=== PATIENT | female | born 1985 | race Caucasian/White ===

== ENCOUNTER 2017-01-27 13:31 | Emergency (ER) | payer SELFPAY ==
[~2017-01-27 13:31] MED LIST: DOXY100T18 PO
[2017-01-27 13:33] VITALS: BP 143/74; PULSE 78; RESP 15; TEMP 98.2; O2SAT 98
--- NOTE | 2017-01-27 15:16 | PD ---
HPI . sore throat and head congestion x 1 week Chief Complaint: Cold / Flu Symptoms Time Seen by Provider: 15:16 Travel History International Travel<30 days: No Contact w/Intl Traveler<30days: No Traveled to known affect area: No History of Present Illness HPI 31-year-old female here with complaints of head congestion, sore throat and intermittent nausea for 1 week. Patient says her pain in her head pressure was so intense that she developed nausea and has had it since. Her head pressure started to improve yesterday, but is still present. She is also complaining of sore throat. She said she was previously diagnosed with sinusitis in the past and this seems similar. She denies any fever or chills. She denies any coughing. PFSH Past Medical History Depression: Yes Diabetes: No Diminished Hearing: No Insomnia: Yes Reproductive: Yes (H/O TRICH AND BACTERIAL VAGINOSIS IN THE PAST) Immunizations Current: Yes Migraines: Yes ?: Not : 5 Para: 3 Miscarriage: 2 Tubal Ligation: Yes Social History Alcohol Use: No Tobacco Use: No Substance Use: No Allergies-Medications (Allergen,Severity, Reaction): Coded Allergies: Clindamycin (Verified Allergy, Severe, RASH, 01/27/17) Vancomycin (Verified Allergy, Severe, rash/itching, 01/27/17) *MDRO Multi-Drug Resistant Organism (Verified Adverse Reaction, Unknown, ) MRSA (knee wound) - 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, (thigh wound) - 10/2015 MRSA PCR Screen POSITIVE - 11/05/2015 Reported Meds & Prescriptions Reported Meds & Active Scripts Active Review of Systems General / Constitutional: No: Fever Eyes: No: Visual changes HENT: Positive: Sore Throat, Congestion, No: Headaches Cardiovascular: No: Chest Pain or Discomfort Respiratory: No: Shortness of Breath Gastrointestinal: Positive: Nausea, No: Abdominal Pain Genitourinary: No: Dysuria Musculoskeletal: No: Pain Skin: No Rash Neurologic: No: Weakness Psychiatric: No: Depression Endocrine: No: Polydipsia Hematologic/Lymphatic: No: Easy Bruising Physical Exam Narrative GENERAL: AAO x 3, no acute distress, Well-nourished, well-developed patient. SKIN: Warm and dry. No visible rashes or bruising. HEAD: Normocephalic and atraumatic. EYES: No scleral icterus. No injection or drainage. EOM intact, PERRLA ENT: No nasal drainage noted. Mucous membranes pink. Airway patent. Maxillary sinus tenderness. Posterior pharynx no erythema, exudates or edema. NECK: Supple, trachea midline. No JVD. No lymphadenopathy. CARDIOVASCULAR: Regular rate and rhythm without murmurs, gallops, or rubs. RESPIRATORY: Breath sounds equal bilaterally. No accessory muscle use. No rhonchi or rales. GASTROINTESTINAL: Abdomen soft, non-tender, nondistended. EXTREMITIES: No cyanosis or edema. BACK: Nontender without obvious deformity. No CVA tenderness. PSYCH: AAO x 3, normal affect. Data Data Last Documented VS Vital Signs Date Time Temp Pulse Resp B/P Pulse Ox O2 Delivery O2 Flow Rate FiO2 01/27/17 13:33 98.2 78 15 143/74 98 MDM Medical Decision Making Medical Screen Exam Complete: Yes Emergency Medical Condition: Yes Medical Record Reviewed: Yes Differential Diagnosis Sinusitis, allergic rhinitis, bronchitis Narrative Course 31-year-old female here with complaints of head congestion, sore throat and intermittent nausea for 1 week. Patient says her pain in her head pressure was so intense that she developed nausea and has had it since. Her head pressure started to improve yesterday, but is still present. She is also complaining of sore throat. She said she was previously diagnosed with sinusitis in the past and this seems similar. She denies any fever or chills. She denies any coughing. Patient seen and examined. She appears to have sinusitis. She has maxillary sinus tenderness. We have discussed antibiotic options and she would like a Z-Rm as it is slightly cheaper than some of the alternative medications. Patient verbalized understanding of instructions, questions were answered, and thanked me for their care. I advised them if their condition worsens, please return to the nearest emergency room for further care. Diagnosis Primary Impression: Acute sinusitis Qualified Code: J01.00 - Acute maxillary sinusitis, recurrence not specified Patient Instructions: General Instructions, Sinusitis (ED) Additional Instructions: Please return to emergency department if your symptoms return or worsen. Follow up with your primary care provider. Take medications as prescribed. Try [id number] Claritin or Zyrtec for the next 7 days as this may also help with symptoms. Med/Other Pt SpecificInfo: Prescription(s) given Scripts Azithromycin (Zithromax Z-Rm)250 Mg [id number] Mg PO DIRECTED #1 DSPK Ref 0 500 MG (2 tabs) day 1, then 1 tab days 2-5. Prov:Lance Perez MD 01/27/17 Disposition: 01 DISCHARGE HOME Condition: Stable Fbay Floyd Jan 27, 2017 15:16
[2017-01-27] MEDS ORDERED: ZITHTAB PO (15:22)
== END 2017-01-27 16:15 | disposition home or self-care (01) ==
LOC: NETRI 13:31
DX: J01.00 Acute maxillary sinusitis, unspecified (principal); R11.0 Nausea; R07.0 Pain in throat; Z86.59 Personal history of other mental and behavioral disorders; Z86.69 Personal history of other diseases of the nervous system and sense organs
CPT/HCPCS: 99283

== ENCOUNTER 2017-08-06 16:02 | Emergency (ER) | payer SELFPAY ==
[~2017-08-06] VITALS: Ht 165.1 cm; Wt 70.0 kg
[~2017-08-06 16:02] MED LIST changes: -DOXY100T18 PO; +ZITHTAB PO
[2017-08-06 16:04] VITALS: BP 124/69; PULSE 80; RESP 14; TEMP 98.5; O2SAT 99
[2017-08-06 19:28] VITALS: BP 124/81; PULSE 82; RESP 18; O2SAT 100
[2017-08-06 20:01] LABS: BLOOD, URINE NEG (NEG); COMMENT (UR) CULT NOT INDICATED; CULTURE IF INDICATED CULT NOT INDICATED; GLUCOSE,URINE NEG (NEG); KETONE, URINE NEG (NEG); NITRITE,URINE NEG (NEG); SQUAMOUS EPITHELIAL CELL URINE 4 /hpf (0-5); URINE COLOR LIGHT-YELLOW (YELLW/STRAW)
--- NOTE | 2017-08-06 20:28 | PD ---
HPI Chief Complaint: Abdominal Pain Time Seen by Provider: 19:20 Travel History International Travel<30 days: No Contact w/Intl Traveler<30days: No Traveled to known affect area: No History of Present Illness HPI 32-year-old female presents to the emergency department for evaluation of lower abdominal pain and pressure 7 days. She denies fever, chills, nausea, vomiting , diarrhea, vaginal bleeding or discharge. She describes the discomfort as pressure/cramping. She reports she is sexually active and not using any protection. LMP June 2017. [facility] Past Medical History Medical History: Denies Significant Hx Depression: Yes Diabetes: No Diminished Hearing: No Insomnia: Yes Reproductive: Yes (H/O TRICH AND BACTERIAL VAGINOSIS IN THE PAST) Immunizations Current: Yes Migraines: Yes Tetanus Vaccination: Unknown Influenza Vaccination: No ?: Not : 5 Para: 3 Miscarriage: 2 Tubal Ligation: Yes Past Surgical History Other Surgery: Yes (TUBAL LIGATION) Social History Alcohol Use: No Tobacco Use: No Substance Use: No Allergies-Medications (Allergen,Severity, Reaction): Coded Allergies: clindamycin (Verified Allergy, Severe, RASH, 08/06/17) vancomycin (Verified Allergy, Severe, rash/itching, 08/06/17) *MDRO Multi-Drug Resistant Organism (Verified Adverse Reaction, Unknown, 08/06/17) MRSA (knee wound) - 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 SKIN: Focused skin assessment warm/dry. HEAD: Normocephalic. EYES: No scleral icterus. No injection or drainage. NECK: Supple, trachea midline. No JVD or lymphadenopathy. CARDIOVASCULAR: Regular rate and rhythm without murmurs, gallops, or rubs. RESPIRATORY: Breath sounds equal bilaterally. No accessory muscle use. GASTROINTESTINAL: Abdomen soft, non-tender, nondistended. No rebound or guarding. : External genitalia without lesions, moderate amount of yellowish thin discharge in the vaginal vault, friable cervix, mild cervical motion tenderness , no adnexal mass. BACK: Nontender without obvious deformity. No CVA tenderness. Data Data Last Documented VS Vital Signs Date Time Temp Pulse Resp B/P (MAP) Pulse Ox O2 Delivery O2 Flow Rate FiO2 08/06/17 19:28 82 18 124/81 (95) 100 Room Air 08/06/17 16:04 98.5 Orders Orders Gc And Chlamydia Pcr (08/06/17 19:38) Wet Prep Profile (08/06/17 19:38) Urinalysis - C+S If Indicated (08/06/17 19:38) Ed Urine Pregnancytest Poc (08/06/17 19:38) Azithromycin Powd Pack (Zithromax Powd P (08/06/17 20:30) Ceftriaxone Inj (Rocephin Inj) (08/06/17 20:30) Lidocaine 1% Inj (50 Ml) (Xylocaine 1% I (08/06/17 20:30) Labs Laboratory Tests Test 08/06/17 19:38 Urine Color LIGHT-YELLOW Urine Turbidity HAZY Urine pH 6.0 Urine Specific Hooper 1.012 Urine Protein NEG mg/dL Urine Glucose (UA) NEG mg/dL Urine Ketones NEG mg/dL Urine Occult Blood NEG Urine Nitrite NEG Urine Bilirubin NEG Urine Urobilinogen LESS THAN 2.0 MG/DL Urine Leukocyte Esterase SMALL Urine RBC 1 /hpf Urine WBC 5 /hpf Urine Squamous Epithelial Cells 4 /hpf Microscopic Urinalysis Comment CULT NOT INDICATED Clue Cells (Wet Prep) PRESENT Vaginal Trichomonas (Wet Prep) NONE SEEN Vaginal Yeast (Wet Prep) NONE SEEN MDM Medical Decision Making Medical Screen Exam Complete: Yes Emergency Medical Condition: Yes Differential Diagnosis Cervicitis, PID, UTI, bacterial vaginosis Narrative Course 32-year-old female with lower abdominal cramping/pressure 7 days. Patient's physical exam is reassuring. She is well-appearing and nontoxic. Her abdomen is soft. She has mild discomfort over the suprapubic region. Her pelvic exam reveal a friable cervix with mild cervical motion tenderness. UA, wet prep, GC/ Chlamydia cultures pending Urine POC: Negative UA: Negative for infection Wet prep: positive for clue cells gc/chlamydia: Pending Patient will be empirically treated for cervicitis and BV. She was instructed to follow-up with [facility] for reexam. Return precautions discussed. Patient verbalizes understanding and agrees to plan Diagnosis Primary Impression: Bacterial vaginosis Additional Impression: Cervicitis Referrals: Tablet Tester Additional Instructions: Take the medications as prescribed. Follow-up with [facility]. Practice safe sex practices until all partners are tested & treated. Scripts Metronidazole (Flagyl) 500 Mg Tab 500 MG PO BID for Infection for 7 Days, #14 TAB 0 Refills Prov: Erinn Hernandez 08/06/17 Disposition: 01 DISCHARGE HOME Condition: Stable Erinn Hernandez Aug 06, 2017 20:28
[2017-08-06] MEDS ORDERED: LIDOCAINE HCL 1% 50 ML VIAL IM ONE (20:30)
[2017-08-06] MEDS ORDERED: AZITHROMYCIN PWD FOR SUSP 1 GM PACKET PO ONE (20:30)
[2017-08-06] MEDS ORDERED: cefTRIAXone 250 MG VIAL IM ONE (20:30)
[2017-08-06] MEDS ORDERED: METR-1 PO (20:31)
[2017-08-06 22:12] LABS: CHLAMYDIA PCR NOT DETECTED (NOT DETECT); NEISSERIA PCR NOT DETECTED (NOT DETECT)
== END 2017-08-06 21:24 | disposition home or self-care (01) ==
LOC: NEPD 16:02
DX: N76.0 Acute vaginitis (principal); N72 Inflammatory disease of cervix uteri; Z86.59 Personal history of other mental and behavioral disorders; Z87.42 Personal history of other diseases of the female genital tract; Z86.69 Personal history of other diseases of the nervous system and sense organs
CPT/HCPCS: 81001; 84703; 87210; 87491; 87591; 96372; 99284; J0696